=== PATIENT | male | born 1965 | race Caucasian/White ===

== ENCOUNTER → 2020-08-05 | Outpatient (CLI) | payer BC, OTHER ==
[2015-07-10 13:00] VITALS: BP 132/86
[~2020-08-05] MED LIST: ALPR1TAB2 PO; BUPR100T6 PO; CARI350T PO; CHOL10003 PO; CITA10TA4 PO; CONTRAST GIVEN. MC PRN; GABA300C18 PO; IOHEXOL 300 MG/ML 100ML VIAL. IV ONE; MULT-208 PO; NORT10CA PO; OXYC30TA3 PO; PRAV10TA2 PO; RAMI10CA53 PO; [UNRECOGNIZED DRUG - OTHER]
--- NOTE | 2020-08-05 17:00 | RAD ---
EXAM: CT Abdomen and Pelvis with and without IV contrast INDICATION: Reason: HEMATURIA / Spl. Instructions: IV OMNI 300 75 MLS AND WATER / History: TECHNIQUE: Multi-detector row CT images were acquired from the lung bases through the abdomen and pel vis with and without the use of IV contrast. Sagittal and coronal images were acquired from the trans axial data. All CT scans performed at this facility utilize dose optimization techniques as appropria te to the exam, including the following: Automated exposure control and adjustment of the mA and/or K V according to patient size (this includes techniques or standardized protocols for targeted exams wh ere dose is indication/reason for exam). IV CONTRAST: Administered ORAL CONTRAST: Not administered COMPARISON: None FINDINGS: LOWER CHEST: Unremarkable LIVER: Unremarkable BILIARY SYSTEM: Gallbladder is unremarkable. Bile ducts are not dilated. PANCREAS: Unremarkable SPLEEN: Unremarkable ADRENALS: Unremarkable KIDNEYS & URETERS: Precontrast images show no radiopaque stones in the urinary tract and no evidence of hydronephrosis or perirenal soft tissue stranding. Postcontrast images show symmetric enhancement the kidneys with no mass or delayed nephrogram. Delayed pyelogram phase shows unremarkable enhanceme nt of the renal collecting system with no suspicious filling defects. BLADDER: Mild diffuse urinary bladder wall thickening is present. No filling defects or stones. REPRODUCTIVE ORGANS: Unremarkable GASTROINTESTINAL: Stomach is unremarkable. Colon shows scattered diverticuli without findings of acut e diverticulitis. Sigmoid colon is under distended. This mimics wall thickening. There is fibrofatty infiltration of the wall of the terminal ileum, a nonspecific finding that could reflect episodes of previous inflammation. The appendix is normal. MESENTERY/PERITONEUM/RETROPERITONEUM: Unremarkable VASCULAR: Unremarkable LYMPH NODES: Mildly enlarged mesenteric lymph nodes primarily in the ileocolic chain are evident. OSSEOUS & SOFT TISSUES: Unremarkable IMPRESSION: 1. Mild diffuse urinary bladder wall thickening, possibly a reflection of cystitis. Otherwise negativ e CT urogram. No other cause for hematuria is identified. 2. Mild enlargement of ileocolic chain lymph nodes and fibrofatty infiltration of the terminal ileum could be a reflection of previous or smoldering small bowel inflammation. Correlate clinically. Electronically signed by: Liliam Harvey MD (08/05/2020 4:58 PM) [id number]
== END ==
LOC: CT 08:56
PROVIDERS: ATTEND Family Medicine
DX: K57.30 Diverticulosis of large intestine without perforation or abscess without bleeding (principal); R31.9 Hematuria, unspecified; R59.9 Enlarged lymph nodes, unspecified
CPT/HCPCS: 74178; Q9967

== ENCOUNTER → 2021-04-29 | Outpatient (CLI) | payer BC ==
[2015-07-10 13:00] VITALS: BP 132/86
[~2021-04-29] MED LIST changes: -CITA10TA4 PO; +CITA10TA5 PO
--- NOTE | 2021-04-29 15:39 | RAD ---
CT ABDOMEN+PELVIS WO+W History: Hematuria, right flank pain. Comparison: CT abdomen pelvis 08/05/2020. Technique: CT urogram with CT of the abdomen and pelvis before intravenous contrast, nephrographic ph ase CT of the kidney and delayed intravenous contrast phase CT of the abdomen and pelvis. Findings: There is no nephrolithiasis or hydronephrosis. No renal masses are identified. Respiratory images dem onstrate normal renal collecting system and patent ureters without urothelial mass. The bladder wall is mildly thickened without focal abnormality, likely due to incomplete distention. Mildly enlarged p rostate with central calcifications and mass effect on the inferior bladder. Lung bases are clear. The liver, gallbladder, pancreas, spleen and adrenals are unremarkable. Stomach is unremarkable. There is mild fatty infiltration of the terminal ileum and relative dilation of the distal ileum without adjacent inflammatory fat stranding. There is prominence of lower abdominal and mesenteric lymph nodes as previously described. The appendix is normal. Redundant sigmoid with diver ticulosis. No pericolonic inflammatory changes. No abdominopelvic free air or free fluid. Vasculature is unremarkable. Soft tissues are within normal limits. No acute osseous abnormality. Impression: 1. Mildly enlarged prostate with mass effect on the inferior bladder. This may represent an etiology for hematuria. Correlate with cystoscopy and prostate exam. 2. No nephrolithiasis, hydronephrosis or urothelial mass. 3. Redemonstrated fatty infiltration of the terminal ileum with relative dilation of the distal ileu m and prominent mesenteric lymph nodes. Recommend correlation for possible inflammatory bowel disease . ------ Exposure: One or more of the following individualized dose reduction techniques were utilized for thi s examination: 1. Automated exposure control 2. Adjustment of the mA and/or kV according to patient size 3. Use of iterative reconstruction technique. Electronically signed by: Doni Orantes MD (04/29/2021 3:36 PM) [id number]
== END ==
LOC: CT 10:50
PROVIDERS: ATTEND Family Medicine
DX: N40.0 Benign prostatic hyperplasia without lower urinary tract symptoms (principal); R31.9 Hematuria, unspecified
CPT/HCPCS: 74178; Q9967